=== PATIENT | female | born 1990 | race Caucasian/White ===

== ENCOUNTER 2018-07-16 13:18 | Day surgery (SDC) | payer OTHER ==
[2018-07-16] MEDS ORDERED: SOD CHLORIDE 0.9% 1,000 ML IV (14:30)
[2018-07-16] MEDS ORDERED: CEFAZOLIN 2 GM/50 ML (PMX) 50 ML IVPB (14:30)
[2018-07-16] MEDS ORDERED: CEFAZOLIN 1 GM INJ (15:10)
[2018-07-16] MEDS ORDERED: MIDAZOLAM 1 MG/ML 2 ML INJ (15:10)
[2018-07-16] MEDS ORDERED: ROCURONIUM 50 MG INJ (15:10)
[2018-07-16] MEDS ORDERED: PROPOFOL 20 ML (15:10)
[2018-07-16] MEDS ORDERED: ROPIVACAINE 0.5 % 30 ML VIAL (15:11)
[2018-07-16] MEDS ORDERED: HYDROmorphONE 1 MG/5 ML IV SYRINGE IV ×2 (16:00)
[2018-07-16] MEDS ORDERED: hydrALAzine 20 MG INJ IV (16:00)
[2018-07-16] MEDS ORDERED: FENTAnyl 50 MCG/ML VIAL IV ×3 (16:00)
[2018-07-16] MEDS ORDERED: METOCLOPRAMIDE 10 MG INJ IV (16:00)
[2018-07-16] MEDS ORDERED: MEPERIDINE 25 MG INJ IV (16:00)
[2018-07-16] MEDS ORDERED: OXYCODONE/ACETAMINOPHEN (5/325) TAB PO (16:00)
[2018-07-16] MEDS ORDERED: DIPHENHYDRAMINE 50 MG INJ IV (16:00)
[2018-07-16] MEDS ORDERED: EPHEDrine SULFATE 50 MG/5 ML SYG IV (16:00)
[2018-07-16] MEDS ORDERED: LABETALOL HCL 20MG INJ IV (16:00)
[2018-07-16] MEDS ORDERED: ONDANSETRON 4 MG INJ (16:19)
[2018-07-16] MEDS ORDERED: DEXAMETHASONE 4 MG/ML 1 ML INJ (16:19)
[2018-07-16] MEDS ORDERED: METOCLOPRAMIDE 10 MG INJ (16:19)
[2018-07-16] MEDS ORDERED: KETOROLAC 30 MG INJ (16:19)
[2018-07-16] MEDS ORDERED: SUGAMMADEX SODIUM 200 MG/2 ML VIAL IV (16:25)
[2018-07-16] MEDS ORDERED: HYDROCODONE/APAP (5/325) TAB PO (16:30)
[2018-07-16] MEDS: HYDROmorphONE 1 MG/5 ML IV SYRINGE IV (17:17)
[2018-07-16] MEDS: ONDANSETRON 4 MG INJ IV (17:33)
== END 2018-07-16 18:40 | disposition home or self-care (01) ==
LOC: SDS 13:18
DX: K80.10 Calculus of gallbladder with chronic cholecystitis without obstruction (principal)
CPT/HCPCS: 47562; 84703; 88304